=== PATIENT | female | born 1960 | race Caucasian/White ===

== ENCOUNTER 2018-06-16 06:14 | Day surgery (SDC) | payer OTHER ==
[2018-06-16] MEDS ORDERED: LACTATED RINGER'S 1,000 ML IV (07:00)
[2018-06-16] MEDS ORDERED: OXYCODONE/ACETAMINOPHEN (5/325) TAB PO ×4 (07:30→08:00)
[2018-06-16] MEDS ORDERED: ACETAMINOPHEN 500 MG TAB PO (07:30)
[2018-06-16] MEDS ORDERED: FENTAnyl 50 MCG/ML VIAL IV ×3 (07:30)
[2018-06-16] MEDS ORDERED: ONDANSETRON 4 MG INJ IV ×2 (07:30→08:00)
[2018-06-16] MEDS ORDERED: hydrALAzine 20 MG INJ IV (07:30)
[2018-06-16] MEDS ORDERED: MIDAZOLAM 1 MG/ML 2 ML INJ (07:37)
[2018-06-16] MEDS ORDERED: CEFAZOLIN 1 GM INJ (07:38)
[2018-06-16] MEDS: BUPIVACAINE 0.25% (MPF) 30 ML INJ (07:43)
[2018-06-16] MEDS: LIDOCAINE 1% (MPF) 30 ML INJ (07:43)
[2018-06-16] MEDS ORDERED: morphine 2 MG INJ IV (08:00)
[2018-06-16] MEDS ORDERED: hydrALAzine 20 MG INJ (08:07)
== END 2018-06-16 09:39 | disposition home or self-care (01) ==
LOC: SDS 06:14
DX: L72.11 Pilar cyst (principal); I10 Essential (primary) hypertension; E78.5 Hyperlipidemia, unspecified; G47.30 Sleep apnea, unspecified
CPT/HCPCS: 11423; 88304